=== PATIENT | male | born 1955 ===

== ENCOUNTER 2021-07-05 06:11 | Day surgery (SDC) | payer OTHER ==
[~2021-07-05] VITALS: Ht 175.3 cm; Wt 90.0 kg
[2021-07-05] MEDS ORDERED: METF500C (06:34)
[2021-07-05] MEDS ORDERED: ROSU10TA PO (06:35)
[2021-07-05] MEDS ORDERED: LEVSOD112 PO (06:35)
[2021-07-05] MEDS ORDERED: LOSA50 PO (06:35)
[2021-07-05] MEDS ORDERED: GLIP5 PO (06:35)
--- NOTE | 2021-07-05 09:50 | NUR ---
07/05/21 0949 ANDREW MUELLER PT FALLING ASLEEP EASILY AND NOT TAKING DEEP BREATHS. O2 PER NC APPLIED. WAS DROPPING IN THE LOWER 80'S. NOW AT 4 L AND O2 STAYING IN THE 90'S. WILL TITRATE DOWN NEEDED. REQUESTING MORE PAIN MEDICATION LEFT HAND QUITE PAINFUL 07/10.
== END 2021-07-05 10:48 | disposition home or self-care (01) ==
LOC: ORSCSDS 06:11
PROVIDERS: Orthopaedic Surgery
PROC: 0LX80ZZ Transfer Left Hand Tendon, Open Approach (ICD-10-PCS; principal; 2021-07-05 07:30)
PROC: 0RQT0ZZ Repair Left Carpometacarpal Joint, Open Approach (ICD-10-PCS; principal; 2021-07-05 07:30)
DX: M18.12 Unilateral primary osteoarthritis of first carpometacarpal joint, left hand (principal); I10 Essential (primary) hypertension; E11.9 Type 2 diabetes mellitus without complications; Z79.84 Long term (current) use of oral hypoglycemic drugs; Z79.899 Other long term (current) drug therapy
CPT/HCPCS: 82947; A9270; C1713; J0690; J2250; J2405; J2704; J2795; J3010; J7120